=== PATIENT | male | born 1970 | race Caucasian/White ===

== ENCOUNTER 2019-10-19 17:43 | Inpatient (IN) | payer OTHER ==
[~2019-10-19] VITALS: Ht 190.5 cm; Wt 124.3 kg
[2019-10-19 17:57] VITALS: BP 145/96
[2019-10-19] MEDS ORDERED: COZAAR 25 MG TA25 M1 PO ×2 (17:59→21:39)
[2019-10-19 18:22] LABS: URINE BILIRUBIN NEGATIVE (Negative); URINE BLOOD NEGATIVE (Negative); URINE CLARITY CLEAR; URINE COLOR YELLOW; URINE GLUCOSE-RANDOM NEGATIVE (Negative); URINE KETONES NEGATIVE (Negative); URINE LEUKOCYTES NEGATIVE (Negative); URINE NITRITE NEGATIVE (Negative); URINE PROTEIN NEGATIVE (Negative)
[2019-10-19 18:24] LABS: ABSOLUTE BASOPHILS 0.1 thou/uL (0.0-0.2); ABSOLUTE EOSINOPHILS 0.2 thou/uL (0.0-0.7); ABSOLUTE LYMPHOCYTES 1.5 thou/uL (0.8-5.3); ABSOLUTE MONOCYTES 0.7 thou/uL (0.0-1.2); ABSOLUTE NEUTROPHILS 5.9 thou/uL (1.6-8.1); BASOPHILS 0.8 %; EOSINOPHILS 2.4 %; HEMATOCRIT 50.6 % (42.0-52.0); HEMOGLOBIN 17.4 gm/dL (14.0-18.0); LYMPHOCYTES 18.3 %; MCH 31.6 pg (26.0-34.0); MCHC 34.4 g/dL (28.0-37.0); MCV 92.1 fL (80.0-100.0); MPV 9.3 fl. (7.2-11.1); NUCLEATED RBCS 0 /100WBC; PLATELET COUNT* 193 thou/uL (150-400); POLYS 70.5 %; RBC 5.49 mil/uL (4.50-6.00); RDW-CV 14.6 % (10.5-14.5); WBC 8.4 thou/uL (4.0-11.0)
[2019-10-19 19:09] LABS: CALCIUM 8.4 mg/dL (8.5-10.1)
[2019-10-19 19:15] LABS: ALBUMIN 3.5 g/dL (3.4-5.0); TOTAL BILIRUBIN 0.5 mg/dL (<0.1-1.0)
[2019-10-19 19:18] LABS: INFLUENZA A ANTIGEN Negative (Negative); INFLUENZA B ANTIGEN Negative (Negative)
[2019-10-19 21:20] VITALS: BP 128/85
[2019-10-19 21:30] VITALS: BP 134/87
[2019-10-19] MEDS ORDERED: METFORMIN HCL500 M3 PO (21:37)
[2019-10-20] VITALS: BP 131/85
[2019-10-20 04:05] LABS: ABSOLUTE EOSINOPHILS 0.2 thou/uL (0.0-0.7); ABSOLUTE LYMPHOCYTES 1.7 thou/uL (0.8-5.3); ABSOLUTE MONOCYTES 0.6 thou/uL (0.0-1.2); ABSOLUTE NEUTROPHILS 5.4 thou/uL (1.6-8.1); BASOPHILS 0.5 %; EOSINOPHILS 2.5 %; HEMOGLOBIN 16.3 gm/dL (14.0-18.0); MCH 31.3 pg (26.0-34.0); MCHC 33.9 g/dL (28.0-37.0); MCV 92.5 fL (80.0-100.0); MONOCYTES 7.9 %; MPV 8.9 fl. (7.2-11.1); NUCLEATED RBCS 0 /100WBC; PLATELET COUNT* 174 thou/uL (150-400); POLYS 68.1 %; RBC 5.19 mil/uL (4.50-6.00); RDW-CV 14.7 % (10.5-14.5)
[2019-10-20 04:16] LABS: CALCIUM 7.5 mg/dL (8.5-10.1); CREATININE 0.9 mg/dL (0.6-1.3); POTASSIUM 3.8 mmol/L (3.5-5.1)
--- NOTE | 2019-10-20 05:37 | NUR ---
PT ADMITTED TO ROOM 210 DURING THIS SHIFT; VSS, A+OX4, ROOM AIR, MED/SURG STATUS, UP AD DEMETRIO, ABD PAIN. HE IS ABLE TO COMMUNICATE HIS NEEDS TO STAFF EFFECTIVELY. CURRENT PAIN MEDICATION REGIMEN HAS BEEN ADEQUATE FOR CONTROLLING HIS PAIN UP TO THIS TIME. HE HAS BEEN NPO SINCE ADMISSION TO [facility] FOR A SURGERY CONSULT LATER TODAY; SURGERY RESIDENT DID SEE PT LAST NOC SHORTLY AFTER ADMISSION.
[2019-10-20 07:40] VITALS: BP 142/94
--- NOTE | 2019-10-20 10:33 | EKG ---
[place] [address] ELECTROCARDIOGRAM REPORT Name: DAV SARABIA Room: [address] ADM IN M.R.#: [id number] Admission: 10/19/19 Attend Phys: Tico Eckert Discharge: Date of : 68 Date of Service: 10/19/19 182 Report #: [id number] THIS REPORT FOR: //name// [facility] ED Test Date: 2019-10-19 Test Time: 18:22:09 Pat Name: DAV SARABIA Department: Room: [facility] Gender: M Flexible Nanny: [place] : 1970 Requested By: Felicitas Armstrong Order Number: [id number] MD: Eris Thrasher Measurements Intervals [place] Rate: 66 P: -5 [place]: 157 QRS: 156 QRSD: 99 T: 59 QT: 414 QTc: 434 Interpretive Statements Sinus rhythm Right axis deviation Low voltage, precordial leads No previous ECG available for comparison Electronically Signed On 10-20-2019 10:32:03 CDT by Eris Thrasher [email or web address] <ELECTRONICALLY SIGNED> By: Eris Thrasher MD, FAC 10/20/19 1032 1822 21 Eris Thrasher MD, [facility] /EPI
--- NOTE | 2019-10-20 16:05 | NUR ---
Pt is A&O. Resides at home with his SO. Active and independent. No DME. No hx of HH or SNF. Per [facility], Pt does not qualify for [facility], CM updated Pt. Following.
[2019-10-20 17:04] VITALS: BP 134/93
--- NOTE | 2019-10-20 17:20 | NUR ---
PT REMAINED ALERT AND ORIENTED. PT RESTING IN BED. PT TOLERATING DIET. FALL RISK PRECAUTIONS IN PLACE. HOURLY ROUNDING COMPLETED. WILL CONTINUE TO MONITOR.
[2019-10-20 20:39] VITALS: BP 131/79
[2019-10-21 00:03] VITALS: BP 141/98
[2019-10-21 04:09] LABS: HEMATOCRIT 46.6 % (42.0-52.0); HEMOGLOBIN 15.9 gm/dL (14.0-18.0); MCH 31.4 pg (26.0-34.0); MCHC 34.2 g/dL (28.0-37.0); MCV 91.9 fL (80.0-100.0); MPV 9.1 fl. (7.2-11.1); RBC 5.07 mil/uL (4.50-6.00); RDW-CV 14.4 % (10.5-14.5); WBC 5.8 thou/uL (4.0-11.0)
[2019-10-21 04:36] LABS: ALBUMIN 3.1 g/dL (3.4-5.0); CALCIUM 7.9 mg/dL (8.5-10.1); CREATININE 0.9 mg/dL (0.6-1.3); MAGNESIUM 2.2 mg/dL (1.8-2.4); POTASSIUM 3.7 mmol/L (3.5-5.1); TOTAL BILIRUBIN 0.5 mg/dL (<0.1-1.0); TOTAL PROTEIN 6.3 g/dL (6.4-8.2)
--- NOTE | 2019-10-21 07:00 | NUR ---
PT IS ABLE TO COMMUNICATE HIS NEEDS TOP STAFF EFFECTIVELY. HE HAS DENIED THE NEED FOR PAIN MEDICATION UP TO THIS TIME. LIKELY DISCHARGE LATER TODAY.
[2019-10-21 08:26] VITALS: BP 140/91
[2019-10-21] MEDS ORDERED: LEVAQUIN 750 M750 MG PO (09:55)
[2019-10-21 10:19] VITALS: BP 140/91
--- NOTE | 2019-10-21 11:00 | NUR ---
PT DISCHARGED TO HOME AT 1058 WITH NURSING STAFF AND SO. IV OUT. PT STABLE. PERSONAL ITEMS SENT WITH PT. PRESCRIPTION SENT BY [employer].
== END 2019-10-21 11:01 | disposition home or self-care (01) | DRG 393 ==
LOC: M.ERS 17:43 → M.TBA-ER 20:18 → M.2W 21:30
PROVIDERS: Internal Medicine; Physician Assistant; Surgery; ADMIT Internal Medicine
PROC: 0D9670Z Drainage of Stomach with Drainage Device, Via Natural or Artificial Opening (ICD-10-PCS; principal; 2019-10-19)
DX: K43.0 Incisional hernia with obstruction, without gangrene (principal); J15.9 Unspecified bacterial pneumonia; I10 Essential (primary) hypertension; F17.210 Nicotine dependence, cigarettes, uncomplicated; Z87.442 Personal history of urinary calculi; Z23 Encounter for immunization

== ENCOUNTER 2019-10-23 15:18 | Emergency (ER) | payer OTHER ==
[~2019-10-23] VITALS: Ht 190.5 cm; Wt 124.3 kg
[~2019-10-23 15:18] MED LIST: COZAAR 25 MG TA25 M1 PO; LEVAQUIN 750 M750 MG PO; METFORMIN HCL500 M3 PO
[2019-10-23 15:55] LABS: ABSOLUTE EOSINOPHILS 0.1 thou/uL (0.0-0.7); ABSOLUTE LYMPHOCYTES 1.5 thou/uL (0.8-5.3); ABSOLUTE MONOCYTES 0.6 thou/uL (0.0-1.2); ABSOLUTE NEUTROPHILS 4.4 thou/uL (1.6-8.1); BASOPHILS 0.7 %; EOSINOPHILS 1.8 %; HEMATOCRIT 47.7 % (42.0-52.0); HEMOGLOBIN 16.5 gm/dL (14.0-18.0); LYMPHOCYTES 22.6 %; MCH 31.6 pg (26.0-34.0); MCHC 34.6 g/dL (28.0-37.0); MCV 91.3 fL (80.0-100.0); MONOCYTES 8.6 %; MPV 9.1 fl. (7.2-11.1); NUCLEATED RBCS 0 /100WBC; PLATELET COUNT* 177 thou/uL (150-400); POLYS 66.3 %; RBC 5.22 mil/uL (4.50-6.00); RDW-CV 14.4 % (10.5-14.5); WBC 6.6 thou/uL (4.0-11.0)
[2019-10-23 16:03] LABS: CALCIUM 8.2 mg/dL (8.5-10.1); CREATININE 1.1 mg/dL (0.6-1.3); POTASSIUM 3.8 mmol/L (3.5-5.1)
[2019-10-23 16:07] LABS: ALBUMIN 3.5 g/dL (3.4-5.0); TOTAL BILIRUBIN 0.3 mg/dL (<0.1-1.0); TOTAL PROTEIN 6.9 g/dL (6.4-8.2)
[2019-10-23 17:20] VITALS: BP 113/57
--- NOTE | 2019-10-24 11:03 | EKG ---
[place] [address] ELECTROCARDIOGRAM REPORT Name: DAV SARABIA [id number]: 10/23/19 Attend Phys: Discharge: 10/23/19 Date of : 68 Date of Service: 10/23/19 1526 Report #: [id number] THIS REPORT FOR: //name// [facility] ED Test Date: 2019-10-23 Test Time: 15:26:28 Pat Name: DAV SARABIA Department: Room: Gender: [employer] A Driver: [facility] : 1970 Requested By: Cesar Jefferson Order Number: [id number] MD: Kahlil Mcclelland Measurements Intervals [place] Rate: 97 P: -15 [place]: 171 QRS: 178 QRSD: 99 T: 40 QT: 354 QTc: 450 Interpretive Statements Sinus rhythm Left atrial enlargemen possible right ventricular hypertrophy Baseline wander in lead(s) V1,V5 Compared to ECG 10/19/2019 18:22:09 Atrial abnormality now present Electronically Signed On 10-24-2019 11:02:15 CDT by Kahlil Mcclelland [email or web address] <ELECTRONICALLY SIGNED> By: Kahlil Mcclelland MD, [facility] 10/24/19 1102 1526 1526 Kahlil Mcclelland MD, [facility] /EPI
== END 2019-10-23 17:21 | disposition home or self-care (01) ==
LOC: M.ERS 15:18
PROVIDERS: Emergency Medicine Emergency Medical Services
DX: R55 Syncope and collapse (principal); E11.9 Type 2 diabetes mellitus without complications; I10 Essential (primary) hypertension; F17.210 Nicotine dependence, cigarettes, uncomplicated; Z87.442 Personal history of urinary calculi; Z88.0 Allergy status to penicillin